=== PATIENT | female | born 1980 | race Hispanic/Latino ===

== ENCOUNTER 2017-06-02 13:07 | Emergency (ER) | payer BC ==
[2017-06-02 13:23] LABS: HCG,QUAL RESULT POSITIVE (NEGATIVE)
[2017-06-02 13:24] LABS: APPEARANCE,URINE Cloudy (CLEAR); BILIRUBIN,URINE Negative (NEGATIVE); COLOR,URINE Yellow (YELLOW); GLUCOSE, URINE (UA) Negative (NEGATIVE); KETONES,URINE Trace mg/dL (NEGATIVE); LEUKOCYTE ESTERASE ,URINE Moderate (NEGATIVE); NITRATE,URINE Negative (NEGATIVE); OCCULT BLOOD,URINE Large (NEGATIVE); PROTEIN,URINE Negative (NEGATIVE)
[2017-06-02 13:32] LABS: BACTERIA,URINE Few /HPF (None Seen); MUCUS,URINE Few LPF (None Seen); SQUAMOUS EPITHELIAL CELL,UR Moderate /HPF (0-2)
[2017-06-02 13:53] LABS: BASOPHILS % (AUTO) 0.8 % (0.0-5.0); EOSINOPHILS % (AUTO) 1.1 % (0.0-8.0); HEMATOCRIT 34.6 % (36-48); LYMPHOCYTES % (AUTO) 19.7 % (21.0-51.0); MEAN CORPUSCULAR HEMOGLOBIN 30.3 pg (27.0-33.0); MEAN CORPUSCULAR HGB CONC 34.9 g/dL (32.0-36.0); MEAN CORPUSCULAR VOLUME 86.6 fL (79-99); MONOCYTES % (AUTO) 6.4 % (3.0-13.0); PLATELET COUNT (AUTO) 218 K/uL (130-400); RED CELL DISTRIBUTION WIDTH 12.2 % (11.0-15.5); WHITE BLOOD COUNT (AUTO) 8.6 K/uL (4.8-10.8)
[2017-06-02 14:11] LABS: CREATININE 0.7 mg/dL (0.5-1.5); POTASSIUM 3.7 mmol/L (3.5-5.1)
== END 2017-06-02 14:46 | disposition home or self-care (01) ==
LOC: EDH 13:07
DX: O20.0 Threatened abortion (principal); O23.41 Unspecified infection of urinary tract in pregnancy, first trimester; Z3A.01 Less than 8 weeks gestation of pregnancy
CPT/HCPCS: 36415; 76817; 80048; 81001; 81025; 84702; 85025; 86900; 86901

== ENCOUNTER 2017-06-12 18:37 | Emergency (ER) | payer BC | END 2017-06-12 22:27 | disposition home or self-care (01) | LOC: EDH 18:37 | DX: O20.0 Threatened abortion (principal); Z3A.01 Less than 8 weeks gestation of pregnancy | CPT/HCPCS: 36415; 76801; 84702 ==

== ENCOUNTER 2017-06-15 14:12 | Emergency (ER) | payer BC, MEDICAID | END 2017-06-15 15:09 | disposition home or self-care (01) | LOC: EDH 14:12 | DX: O20.0 Threatened abortion (principal); Z98.890 Other specified postprocedural states; Z3A.01 Less than 8 weeks gestation of pregnancy ==